=== PATIENT | male | born 1995 | race African-American/Black ===

== ENCOUNTER 2025-05-24 14:39 | Inpatient (IN) | payer MEDICAID, OTHER ==
[~2025-05-24] VITALS: Ht 170.2 cm; Wt 81.0 kg
[2025-05-24] MEDS ORDERED: 0.9% SODIUM CHLORIDE 10 ML SYRINGE IVP PRN (16:15)
[2025-05-24 16:42] LABS: CALCIUM, TOTAL 9.2 mg/dL (8.8-10.5); CREATININE 0.78 mg/dL (0.60-1.30); GLOMERULAR FILTR. RATE CALC > 60 mL/min (>60); GLUCOSE,RANDOM 111 mg/dL (70-110); PLATELET COUNT (AUTO) 543 K/uL (150-450); RED BLOOD CELL COUNT(AUTO) 3.47 MIL/uL (4.50-5.90); RED CELL DISTRIBUTION WIDTH 13.8 % (11.5-14.5); SODIUM SERUM 132 mmol/L (136-145); UREA NITROGEN, BLOOD 14 mg/dL (7-18); WHITE BLOOD COUNT (AUTO) 13.0 K/uL (4.5-11.0)
[2025-05-24 17:00] LABS: LACTIC ACID 1.5 mmol/L (0.4-2.0)
[2025-05-24] MEDS: CefTRIAXone 1 GM/DEXTROSE 50 ML IV ONE (17:00)
[2025-05-24] MEDS: SODIUM CHLORIDE 0.9% 2,550 ML IV ONE (17:01)
[2025-05-24 17:08] LABS: CREATINE KINASE, TOTAL ONLY 91 U/L (39-308)
[2025-05-24] MEDS ORDERED: ONDANSETRON HCL 4 MG/2 ML VIAL IVP PRN (17:15)
[2025-05-24] MEDS ORDERED: ZOLPIDEM TARTRATE 5 MG TABLET PO PRN (17:15)
[2025-05-24] MEDS ORDERED: MAGNESIUM HYDROXIDE SUSPENSION 30 ML UDCUP PO PRN (17:15)
[2025-05-24 17:34] LABS: COVID AG,FIA SOURCE NASAL SWAB
[2025-05-24 17:56] LABS: INFLUENZA TYPE A NEGATIVE FOR TYPE A (NEGATIVE); INFLUENZA TYPE B NEGATIVE FOR TYPE B (NEGATIVE); SARS-COV2 (COVID) ANTIGEN,FIA Negative (Negative)
[2025-05-24] MEDS: SODIUM CHLORIDE 0.9% 1,000 ML IV ONE (18:47)
[2025-05-24 19:58] LABS: APPEARANCE,URINE CLEAR (CLEAR); GLUCOSE, URINE (UA) NEGATIVE (NEGATIVE); LEUKOCYTE ESTERASE ,URINE NEGATIVE (NEGATIVE); NITRATE,URINE NEGATIVE (NEGATIVE); OCCULT BLOOD,URINE NEGATIVE (NEGATIVE); SPECIFIC GRAVITIY, URINE 1.028 (1.003-1.030)
[2025-05-24 23:43] VITALS: BP 143/86; PULSE 136; RESP 20; TEMP 102.6; O2SAT 93
[2025-05-25] VITALS (9 sets, daily range): BP systolic 114–148; BP diastolic 75–99; PULSE 76–126; RESP 18; TEMP 99.1–102.6; O2SAT 95–98
[2025-05-25] MEDS: ACETAMINOPHEN 325 MG TABLET PO PRN (00:22)
[2025-05-25 06:09] LABS: PLATELET COUNT (AUTO) 544 K/uL (150-450); RED BLOOD CELL COUNT(AUTO) 3.30 MIL/uL (4.50-5.90); RED CELL DISTRIBUTION WIDTH 13.6 % (11.5-14.5); WHITE BLOOD COUNT (AUTO) 11.4 K/uL (4.5-11.0)
[2025-05-25 06:25] LABS: CALCIUM, TOTAL 8.7 mg/dL (8.8-10.5); CREATININE 0.67 mg/dL (0.60-1.30); GLOMERULAR FILTR. RATE CALC > 60 mL/min (>60); GLUCOSE,RANDOM 120 mg/dL (70-110); SODIUM SERUM 130 mmol/L (136-145); UREA NITROGEN, BLOOD 8 mg/dL (7-18)
[2025-05-25] MEDS: FAMOTIDINE 20 MG TABLET PO SCH (08:45)
[2025-05-25] MEDS ORDERED: SODIUM CHLORIDE 0.9% 500 ML IV ONE (16:02)
[2025-05-25] MEDS: CefTRIAXone 1 GM/DEXTROSE 50 ML IV SCH (16:04)
[2025-05-25 17:43] LABS: PH,URINE DRUG SCREEN 7.5 (5.0-8.0)
[2025-05-25 17:50] LABS: ALCOHOL, URINE DRUG SCREEN NEGATIVE (NEGATIVE); AMPHET/METH SCREEN,URINE NEGATIVE (NEGATIVE); BARBITURATE SCREEN, URINE NEGATIVE (NEGATIVE); CANNABINOID SCREEN,URINE NEGATIVE (NEGATIVE); COCAINE SCREEN,URINE NEGATIVE (NEGATIVE); METHADONE SCREEN, URINE NEGATIVE (NEGATIVE)
[2025-05-26 04:22] VITALS: BP 123/91; PULSE 127; RESP 18; TEMP 100.2; O2SAT 97
[2025-05-26 08:00] VITALS: BP 101/69; PULSE 93; RESP 18; TEMP 98.4; O2SAT 96
[2025-05-26 12:44] VITALS: BP 118/88; PULSE 102; RESP 18; TEMP 98.9; O2SAT 97
[2025-05-26 15:10] VITALS: BP 121/71; PULSE 104; RESP 18; TEMP 99.9; O2SAT 98
[2025-05-26] MEDS ORDERED: ACETAMINOPHEN 325 MG TABLET PO PRN (15:15)
[2025-05-26] MEDS ORDERED: MAGNESIUM HYDROXIDE SUSPENSION 30 ML UDCUP PO PRN (15:15)
[2025-05-26] MEDS ORDERED: ZOLPIDEM TARTRATE 5 MG TABLET PO PRN (15:15)
[2025-05-26] MEDS ORDERED: ONDANSETRON HCL 4 MG/2 ML VIAL IVP PRN (15:15)
[2025-05-26] MEDS ORDERED: BISACODYL 10 MG RECTAL RECTAL SUPPOSITORY PR PRN (15:15)
[2025-05-26] MEDS: HEPARIN SODIUM,PORCINE 5,000 UNITS/ML VIAL SQ SCH (16:00)
[2025-05-26 18:00] VITALS: TEMP 99.1
[2025-05-26 19:47] VITALS: BP 132/88; PULSE 78; RESP 17; TEMP 98.8; O2SAT 100
[2025-05-26] MEDS: DOCUSATE SODIUM 100 MG CAPSULE PO SCH (20:34)
[2025-05-27 00:22] VITALS: BP 136/80; PULSE 75; PULSE 99; RESP 17; TEMP 98.7; O2SAT 99
[2025-05-27 05:10] VITALS: BP 124/82; PULSE 98; RESP 18; TEMP 99.3; O2SAT 98
[2025-05-27 07:45] VITALS: BP 120/78; PULSE 90; RESP 18; TEMP 98; O2SAT 98
[2025-05-27] MEDS: PANTOPRAZOLE SODIUM 40 MG DR TABLET PO SCH (09:42)
[2025-05-27] MEDS: LACTULOSE 200 GM/300 ML RECTAL SOLUTION PR SCH (10:45)
[2025-05-27 12:00] VITALS: BP 110/84; PULSE 93; RESP 18; TEMP 98; O2SAT 98
[2025-05-27 15:13] LABS: RED BLOOD CELL COUNT(AUTO) 3.56 MIL/uL (4.50-5.90); RED CELL DISTRIBUTION WIDTH 14.6 % (11.5-14.5); WHITE BLOOD COUNT (AUTO) 7.9 K/uL (4.5-11.0)
[2025-05-27 15:18] LABS: PLATELET COUNT (AUTO) 777 K/uL (150-450)
[2025-05-27 15:30] LABS: ASPARTATE AMINOTRANSFERASE 103 U/L (15-37); CALCIUM, TOTAL 9.0 mg/dL (8.8-10.5); CREATININE 0.84 mg/dL (0.60-1.30); GLOMERULAR FILTR. RATE CALC > 60 mL/min (>60); GLUCOSE,RANDOM 114 mg/dL (70-110); SODIUM SERUM 132 mmol/L (136-145); TOTAL PROTEIN, SERUM 8.5 g/dL (6.4-8.2); UREA NITROGEN, BLOOD 12 mg/dL (7-18)
[2025-05-27 19:44] VITALS: BP 120/89; PULSE 100; RESP 18; TEMP 98.6; O2SAT 98
[2025-05-27 22:00] LABS: INFLUENZA A-RTPCR,COMBO NEGATIVE (NEGATIVE); INFLUENZA B-RTPCR,COMBO NEGATIVE (NEGATIVE); RESPIRATORY SYNCYTIAL VRS-PCR NEGATIVE (NEGATIVE); SARS COVID19 RTPCR, COMBO NEGATIVE (NEGATIVE)
[2025-05-27 23:26] VITALS: BP 123/84; PULSE 103; RESP 18; TEMP 99.5; O2SAT 99
[2025-05-28 04:50] VITALS: BP 120/88; PULSE 60; RESP 18; TEMP 98.8; O2SAT 96
[2025-05-28 08:41] VITALS: BP 120/77; PULSE 110; RESP 18; TEMP 98.6; O2SAT 97
[2025-05-28 12:16] VITALS: BP 116/84; PULSE 98; RESP 18; TEMP 98.6; O2SAT 98
[2025-05-28 16:00] VITALS: BP 121/78; PULSE 110; RESP 16; TEMP 98.1; O2SAT 98
[2025-05-28 20:53] VITALS: BP 109/75; PULSE 101; RESP 17; TEMP 98.6; O2SAT 96
== END 2025-05-28 21:55 | DRG 872 ==
LOC: EMS 14:39 → EDH 17:13 → 5N 23:17
PROVIDERS: ADMIT Internal Medicine; ATTEND Internal Medicine
DX: A41.9 Sepsis, unspecified organism (principal); E87.1 Hypo-osmolality and hyponatremia; F20.9 Schizophrenia, unspecified; Z20.822 Contact with and (suspected) exposure to COVID-19; K56.41 Fecal impaction; K52.89 Other specified noninfective gastroenteritis and colitis; F17.210 Nicotine dependence, cigarettes, uncomplicated
CPT/HCPCS: 71045; 71250; 72192; 74150; 80048; 80053; 80307; 81003; 82550; 83605; 84145; 85025; 85610; 87040; 87637; 87804; 93005; 96374; 99291; J0696; J1644; J7040; 36415-L1; 36415-TC